=== PATIENT | female | born 1945 | race Caucasian/White ===

== ENCOUNTER 2017-05-31 17:21 | Inpatient (IN) | payer OTHER ==
--- NOTE | 2017-05-31 18:48 | PDOC ---
History of Present Illness - General History Source: Patient Exam Limitations: No Limitations - History of Present Illness Initial Comments: 05/31/17 19:20 The patient is a 72 year old female, with a significant past medical history of hypertension and diverticulitis, who presents to the emergency complaining of increased belching and weakness over the past week. The patient reports she presented to [facility] approximately one week ago with abdominal pain. At the time, the patient reports she had a CT done, which revealed diverticulitis. The patient was started on a laxative, which resulted in a bowel movement and resolved her pain. The patient was started on ciprofloxacin after discharge. The patient reports she has been experiencing increased weakness, a subjective fever, chills, and burning in her chest since she started her antibiotic treatment. She reports increased belching, but denies any current abdominal pain, abdominal distension, nausea, vomiting, diarrhea, or constipation. The patient reports she has had a bowel movement every day since she was discharged, which were yellow in color and soft. The patient denies any dysuria, hematuria, frequency, or urgency. She denies any chest pain , shortness of breath, or palpitations. She denies any recent travel or sick contacts. Allergies: Penicillins Past Surgical History: Appendectomy, Cholecystectomy Social History: Non smoker. No ETOH or recreational drug use. <Carey Wyman - Last Filed: 05/31/17 20:31> <Xochilt Pretty - Last Filed: 05/31/17 22:58> - General Chief Complaint: Weakness Stated Complaint: WEAKNESS Time Seen by Provider: 05/31/17 17:52 Past History <Carey Wyman - Last Filed: 05/31/17 20:31> - Past Medical History HTN: Yes - Surgical History Appendectomy: Yes Cholecystectomy: Yes - Psycho/Social/Smoking Cessation Hx Suicidal Ideation: No Smoking History: Never smoked Information on smoking cessation initiated: No Hx Alcohol Use: No Drug/Substance Use Hx: No Substance Use Type: None <Xochilt Pretty - Last Filed: 05/31/17 22:58> - Past Medical History Allergies/Adverse Reactions: Allergies Allergy/AdvReac Type Severity Reaction Status Date / Time Penicillins Allergy Verified 05/31/17 17:27 Home Medications: Ambulatory Orders Amlodipine Besylate [Norvasc -] 5 mg PO DAILY 05/31/17 Ciprofloxacin HCl [Cipro] 500 mg PO BID 05/31/17 Lisinopril 10 mg PO BID 05/31/17 Metronidazole [Flagyl -] 500 mg PO TID 05/31/17 Simvastatin 20 mg PO HS 05/31/17 Review of Systems - Review of Systems Able to Perform ROS?: Yes Comments:: 05/31/17 19:21 GENERAL/CONSTITUTIONAL: Yes: +fever, +chills, +weakness, +increased belching. HEAD, EYES, EARS, NOSE AND THROAT: No change in vision. No ear pain or discharge. No sore throat. CARDIOVASCULAR: No chest pain or shortness of breath. RESPIRATORY: No cough, wheezing, or hemoptysis. GASTROINTESTINAL: No nausea, vomiting, diarrhea or constipation. GENITOURINARY: No dysuria, frequency, or change in urination. MUSCULOSKELETAL: No joint or muscle swelling or pain. No neck or back pain. SKIN: No rash NEUROLOGIC: No headache, vertigo, loss of consciousness, or change in strength/ sensation. ENDOCRINE: No increased thirst. No abnormal weight change. HEMATOLOGIC/LYMPHATIC: No anemia, easy bleeding, or history of blood clots. ALLERGIC/IMMUNOLOGIC: No hives or skin allergy. <GaroGiomilsy - Last Filed: 05/31/17 20:31> *Physical Exam - Vital Signs Last Vital Signs Temp Pulse Resp BP Pulse Ox 97.7 F 86 18 154/71 98 05/31/17 17:23 05/31/17 17:23 05/31/17 17:23 05/31/17 17:23 05/31/17 17:23 - Physical Exam Comments: 05/31/17 19:22 GENERAL: Awake, alert, and fully oriented, in no acute distress HEAD: No signs of trauma EYES: PERRLA, EOMI, sclera anicteric, conjunctiva clear ENT: Auricles normal inspection, hearing grossly normal, nares patent, oropharynx clear without exudates. Moist mucosa NECK: Normal ROM, supple, no lymphadenopathy, JVD, or masses LUNGS: Breath sounds equal, clear to auscultation bilaterally. No wheezes, and no crackles HEART: Regular rate and rhythm, normal S1 and S2, no murmurs, rubs or gallops ABDOMEN: Hyperactive bowel sounds, Soft, nontender. No guarding, no rebound. No masses EXTREMITIES: Normal range of motion, no edema. No clubbing or cyanosis. No cords, erythema, or tenderness NEUROLOGICAL: Cranial nerves II through XII grossly intact. Normal speech, normal gait SKIN: Warm, Dry, normal turgor, no rashes or lesions noted. <Varsha Wymanrosi - Last Filed: 05/31/17 20:31> - Vital Signs Last Vital Signs Temp Pulse Resp BP Pulse Ox 97.7 F 86 18 154/71 98 05/31/17 17:23 05/31/17 17:23 05/31/17 17:23 05/31/17 17:23 05/31/17 17:23 <Xochilt Pretty - Last Filed: 05/31/17 22:58> ED Treatment Course - LABORATORY CBC & Chemistry Diagram: 05/31/17 19:00 05/31/17 19:00 - ADDITIONAL ORDERS Additional order review: 05/31/17 19:00 RBC 4.28 MCV 90.8 MCHC 34.0 RDW 13.1 MPV 7.8 Neutrophils % 65.5 Lymphocytes % 17.9 Monocytes % 15.5 H Eosinophils % 0.8 Basophils % 0.3 - RADIOLOGY Radiograph Interpretation: 05/31/17 20:32 EXAM: CT Abdomen and Pelvis INTERPRETED BY: Dr. Churchill REVIEWED BY: Dr. Pretty IMPRESSION: Sigmoid and descending colon diverticulosis is noted without CT evidence of acute diverticulitis. Correlate with the results of prior imaging studies if available from a different facility. A nonspecific 6 x 3.7 x 3.4 cm left adnexal cystic structure is seen as discussed above. [employer] consultation is suggested. Status post cholecystectomy. No definite urinary tract dilatation. Moderate hiatal hernia. Within the mid abdominal mesentery centrally in association with several slightly prominent mesenteric lymph nodes. This appearance on CT is most commonly of no clinical significance and much less commonly due to developing inflammation/panniculitis or neoplastic disease. Correlation with 3 month follow-up CT or MRI is essential to document stability and lack of developing pathology. Alternatively direct comparison with previous CT or MRI studies would be helpful if available from a different facility. - Medications Given in the ED: ED Medications Discontinued Medications Generic Name Dose Route Start Last Admin Trade Name Freq PRN Reason Stop Dose Admin Ondansetron HCl 4 mg 05/31/17 18:57 05/31/17 19:15 Zofran Injection IVPUSH 05/31/17 18:58 4 mg ONCE ONE Administration <Carey Wyman - Last Filed: 05/31/17 20:31> - LABORATORY CBC & Chemistry Diagram: 05/31/17 19:00 05/31/17 19:00 <Xochilt Pretty - Last Filed: 05/31/17 22:58> Medical Decision Making - Medical Decision Making Pt with nausea, poor appetite, belching. Found to have acute renal failure (no prior history of kidney problems). Will admit to hospitalist service. <Xochilt Pretty - Last Filed: 05/31/17 22:58> *DC/Admit/Observation/Transfer - Attestations Scribe Attestion: 05/31/17 19:22 Documentation prepared by Carey Wyman, acting as medical office technologist for Xochitl Pretty MD. <Carey Wyman - Last Filed: 05/31/17 20:31> - Discharge Dispostion Admit: Yes <Xochilt Pretty - Last Filed: 05/31/17 22:58> Diagnosis at time of Disposition: Acute renal failure Qualifiers: Acute renal failure type: unspecified Qualified Code(s): N17.9 - Acute kidney failure, unspecified - Discharge Dispostion Condition at time of disposition: Stable - Referrals
[2017-05-31] MEDS ORDERED: SODIUM CHLORIDE 1,000 ML IV STA (18:57)
[2017-05-31] MEDS ORDERED: ONDANSETRON 4 MG/2 ML VIAL IVPUSH ONE (18:57)
[2017-05-31 19:03] LABS: BASOPHIL 0.3 % (0-2.0); EOSINOPHIL 0.8 % (0-4.5); MCH 30.8 pg (25.7-33.7); MEAN CELL VOLUME 90.8 fl (80-96); MEAN PLT VOLUME 7.8 fl (7.5-11.1); NEUTROPHILS 65.5 % (42.8-82.8); PLATELET COUNT 292 K/MM3 (134-434); RDW 13.1 % (11.6-15.6); WHITE BLOOD COUNT 9.4 K/mm3 (4.0-10.0)
[2017-05-31] MEDS ORDERED: ONDANSETRON 4 MG/2 ML VIAL ONE (19:11)
[2017-05-31 19:30] LABS: ALBUMIN 3.6 g/dl (3.4-5.0); ANION GAP 8 (8-16); BILIRUBIN,TOTAL 0.5 mg/dL (0.2-1.0); CALCIUM 8.7 mg/dL (8.5-10.1); CO2 29 mmol/L (21-32); CREATININE 3.2 mg/dL (0.55-1.02); GLUCOSE,RANDOM 106 mg/dL (74-106); MAGNESIUM 2.4 mg/dL (1.8-2.4); SGOT/AST 18 U/L (15-37); SGPT/ALT 15 U/L (12-78)
[2017-05-31 19:31] LABS: ALK PHOS 57 U/L (45-117)
[2017-05-31] MEDS ORDERED: ZOLPIDEM TARTRATE 5 MG TABLET PO PRN (22:39)
--- NOTE | 2017-05-31 23:25 | PN ---
Teaching Attending Note Name of Resident: Sawyer Thompson ATTENDING PHYSICIAN STATEMENT I saw and evaluated the patient. I reviewed the resident's note and discussed the case with the resident. I agree with the resident's findings and plan as documented. SUBJECTIVE: Female c/o abdominal discomfort, denies any urinary problems, urgency , increased frequency or hematuria. OBJECTIVE: GEN:A&Ox3 in mild distress HEENT: NC, AT, PERRLA, EOMI, MMM CVS: RRR, S1, S2 LUNGS: CTA Abdomen: tender, no CVA tenderness, BS+ Ext: Nl rom, no peripheral edema CBCD WBC 9.4 K/mm3 (4.0-10.0) 05/31/17 19:00 RBC 4.28 M/mm3 (3.60-5.2) 05/31/17 19:00 Hgb 13.2 GM/dL (10.7-15.3) 05/31/17 19:00 Hct 38.9 % (32.4-45.2) 05/31/17 19:00 MCV 90.8 fl (80-96) 05/31/17 19:00 MCHC 34.0 g/dl (32.0-36.0) 05/31/17 19:00 RDW 13.1 % (11.6-15.6) 05/31/17 19:00 Plt Count 292 K/MM3 (134-434) 05/31/17 19:00 MPV 7.8 fl (7.5-11.1) 05/31/17 19:00 CMP Sodium 141 mmol/L (136-145) 05/31/17 19:00 Potassium 4.5 mmol/L (3.5-5.1) 05/31/17 19:00 Chloride 104 mmol/L (98-107) 05/31/17 19:00 Carbon Dioxide 29 mmol/L (21-32) 05/31/17 19:00 Anion Gap 8 (8-16) 05/31/17 19:00 BUN 28 mg/dL (7-18) H 05/31/17 19:00 Creatinine 3.2 mg/dL (0.55-1.02) H 05/31/17 19:00 Creat Clearance w eGFR 14.28 (>60) 05/31/17 19:00 Random Glucose 106 mg/dL (74-106) 05/31/17 19:00 Calcium 8.7 mg/dL (8.5-10.1) 05/31/17 19:00 Total Bilirubin 0.5 mg/dL (0.2-1.0) 05/31/17 19:00 AST 18 U/L (15-37) 05/31/17 19:00 ALT 15 U/L (12-78) 05/31/17 19:00 Alkaline Phosphatase 57 U/L (45-117) 05/31/17 19:00 Total Protein 7.0 g/dl (6.4-8.2) 05/31/17 19:00 Albumin 3.6 g/dl (3.4-5.0) 05/31/17 19:00 ASSESSMENT AND PLAN: THAD vs CKD Urine electrolytes, renal USG Avoid nephrotoxic drugs IVF NS Repeat BMP 4hours and in AM Diverticulosis Clear liquids and advance diet as tolerated. PPI DVT prophylaxis
--- NOTE | 2017-05-31 23:50 | HP ---
CHIEF COMPLAINT: belching and weakness PCP: Corinne Salvador HISTORY OF PRESENT ILLNESS: 72F w/ hx of diverticulitis, cholecystectomy, appendectomy, HTN, and HLD presenting w/ increased belching and weakness for past week. Pt reports that she presented to [facility] 8 days ago with abdominal pain and was diagnosed with acute diverticulitis on CT. She was given a laxative which helped her have a BM, and that resolved her abdominal pain. She was discharged on a 10 day course of flagyl and cipro, and told to eat a clear liquid diet for next five days. Pt reports that since beginning her abx, she has had decreased appetite, 2 episodes of non-bloody brown/yellow diarrhea per day, chills, weakness, and "increased gas on her right side" which causes her discomfort but not pain. She denies nausea, emesis, constipation, fevers, chest pain, SOB, dysuria, urgency, urinary frequency, sick contacts, and recent travel. ER course was notable for: (1) BMP showing BUN of 28 and creatinine of 3.2 (2) CT abdomen showing diverticulosis but no diverticulitis (3) Recent Travel: none PAST MEDICAL HISTORY: HTN HLD PAST SURGICAL HISTORY: cholecystectomy appendectomy Social History: Smoking: none Alcohol: none Drugs: none Family History: none Allergies Penicillins Allergy (Verified 05/31/17 17:27)- gets hives HOME MEDICATIONS: Home Medications Medication Instructions Recorded Amlodipine Besylate [Norvasc -] 5 mg PO DAILY 05/31/17 Ciprofloxacin HCl [Cipro] 500 mg PO BID 05/31/17 Lisinopril 10 mg PO BID 05/31/17 Metronidazole [Flagyl -] 500 mg PO TID 05/31/17 Simvastatin 20 mg PO HS 05/31/17 REVIEW OF SYSTEMS GENERAL: No fever, + chills, no night sweats, + weakness. HEAD, EYES, EARS, NOSE AND THROAT: No change in vision, ear pain, or sore throat CARDIOVASCULAR: No chest pain or palpitations RESPIRATORY: No cough, wheezing, or hemoptysis. GASTROINTESTINAL: No nausea, vomiting, + diarrhea, no constipation, or blood in the stool. GENITOURINARY: No dysuria, frequency, or urgency MUSCULOSKELETAL: No joint or muscle swelling or pain. SKIN: No rashes or pruritis ENDOCRINE: No increased thirst. No abnormal weight change NEUROLOGIC: No headache, dizziness, loss of consciousness, or change in strength /sensation. Vital Signs - 24 hr 05/31/17 05/31/17 05/31/17 17:23 20:24 23:33 Temperature 97.7 F 98.2 F Pulse Rate 86 Pulse Rate [ 83 83 Left Radial] Respiratory 18 17 15 Rate Blood Pressure 154/71 Blood Pressure 150/82 156/86 [Right Arm] O2 Sat by Pulse 98 96 94 L Oximetry (%) PHYSICAL EXAMINATION GENERAL: Awake, alert, and fully oriented, in no acute distress. HEAD: Normal with no signs of trauma. EYES: Pupils equal, round and reactive to light, extraocular movements intact, sclera anicteric, conjunctiva clear. No lid lag. EARS, NOSE, THROAT: Ears normal, nares patent, oropharynx clear without exudates. Moist mucous membranes. NECK: Normal range of motion, supple without lymphadenopathy, JVD, or masses. LUNGS: Breath sounds equal, clear to auscultation bilaterally. No wheezes, and no crackles. No accessory muscle use. HEART: Regular rate and rhythm, normal S1 and S2 without murmur, rub or gallop. ABDOMEN: Soft, minimally tender in RUQ, not distended, normoactive bowel sounds , no guarding, no rebound, no masses. No hepatomegaly or splenomegaly. MUSCULOSKELETAL: Normal range of motion at all joints. No bony deformities or tenderness. No CVA tenderness. UPPER EXTREMITIES: 2+ pulses, warm, well-perfused. No cyanosis. No clubbing. No peripheral edema. LOWER EXTREMITIES: 2+ pulses, warm, well-perfused. No calf tenderness. No peripheral edema. NEUROLOGICAL: Cranial nerves II-XII intact. Normal speech. Normal gait. PSYCHIATRIC: Cooperative. Good eye contact. Appropriate mood and affect. SKIN: Warm, dry, normal turgor, no rashes or lesions noted, normal capillary refill. CBC,CMP WBC 9.4 K/mm3 (4.0-10.0) 05/31/17 19:00 RBC 4.28 M/mm3 (3.60-5.2) 05/31/17 19:00 Hgb 13.2 GM/dL (10.7-15.3) 05/31/17 19:00 Hct 38.9 % (32.4-45.2) 05/31/17 19:00 MCV 90.8 fl (80-96) 05/31/17 19:00 MCH 30.8 pg (25.7-33.7) 05/31/17 19:00 MCHC 34.0 g/dl (32.0-36.0) 05/31/17 19:00 RDW 13.1 % (11.6-15.6) 05/31/17 19:00 Plt Count 292 K/MM3 (134-434) 05/31/17 19:00 MPV 7.8 fl (7.5-11.1) 05/31/17 19:00 Neutrophils % 65.5 % (42.8-82.8) 05/31/17 19:00 Lymphocytes % 17.9 % (8-40) 05/31/17 19:00 Monocytes % 15.5 % (3.8-10.2) H 05/31/17 19:00 Eosinophils % 0.8 % (0-4.5) 05/31/17 19:00 Basophils % 0.3 % (0-2.0) 05/31/17 19:00 Sodium 141 mmol/L (136-145) 05/31/17 19:00 Potassium 4.5 mmol/L (3.5-5.1) 05/31/17 19:00 Chloride 104 mmol/L (98-107) 05/31/17 19:00 Carbon Dioxide 29 mmol/L (21-32) 05/31/17 19:00 Anion Gap 8 (8-16) 05/31/17 19:00 BUN 28 mg/dL (7-18) H 05/31/17 19:00 Creatinine 3.2 mg/dL (0.55-1.02) H 05/31/17 19:00 Creat Clearance w eGFR 14.28 (>60) 05/31/17 19:00 Random Glucose 106 mg/dL (74-106) 05/31/17 19:00 Calcium 8.7 mg/dL (8.5-10.1) 05/31/17 19:00 Phosphorus 3.0 mg/dL (2.5-4.9) 05/31/17 19:00 Magnesium 2.4 mg/dL (1.8-2.4) 05/31/17 19:00 Total Bilirubin 0.5 mg/dL (0.2-1.0) 05/31/17 19:00 AST 18 U/L (15-37) 05/31/17 19:00 ALT 15 U/L (12-78) 05/31/17 19:00 Alkaline Phosphatase 57 U/L (45-117) 05/31/17 19:00 Total Protein 7.0 g/dl (6.4-8.2) 05/31/17 19:00 Albumin 3.6 g/dl (3.4-5.0) 05/31/17 19:00 CT Abdomen: sigmoid and descending colon diverticulosis without evidence of diverticulitis. 6 x 3.7 x 3.4 cm left adnexal cystic structure. Moderate hiatal hernia. Prominent mesenteric lymph nodes- f/u CT in 3 months. ASSESSMENT/PLAN: 72F w/ hx of diverticulitis, cholecystectomy, appendectomy, HTN, and HLD presenting w/ increased belching, anorexia, chills, and weakness for past week after starting course of flagyl and cipro for acute diverticulitis, admitted for THAD. #kidney injury -THAD vs. CKD (no baseline available). BUN of 28 and creatinine of 3.2 with ratio less than 10:1 suggesting intrinsic renal disease. Possibly 2/2 ATN vs. AIN 2/2 reaction to flagyl or cipro. Can also be pre-renal given pt's history of decreased po intake over past week. -NS at 100 ml/hr -f/u renal and bladder US -f/u UA -f/u urine creatinine, urine protein, urine sodium -trend BMP -avoid nephrotoxic drugs. home lisinopril 10mg BID held due to kidney injury. #diverticulosis on CT -pt reports no abdominal pain and she denies hx of constipation -no leukocytosis, no fever -clear liquid diet, advance as tolerated -protonix 40mg PO qd #belching/R sided gas -zofran 4mg q6h PRN #weakness -possibly 2/2 decreased po intake over past week and THAD -NS at 100 ml/hr #HTN -continue home amlodipine 5mg qd. If BP is not adequately controlled, can increase to higher dose. -hold lisinopril 10mg BID due to kidney injury -monitor vitals #HLD -continue home simvastatin 20mg qd #anorexia -likely 2/2 THAD -clear liquid diet, advance as tolerated -monitor appetite #L adnexal cystic structure on CT -f/u outpt #prominent mesenteric lymph nodes -f/u outpt CT scan in 3 months as per radiologist recommendation #FEN/ppx -NS at 100 ml/hr -electrolytes wnl -clear liquids -protonix 40mg PO qd -SCDs and heparin 5000 U SQ TID Sawyer Thompson MD PGY1 Problem List - Problem (1) Acute renal failure Code(s): N17.9 - ACUTE KIDNEY FAILURE, UNSPECIFIED Qualifiers: Acute renal failure type: unspecified Qualified Code(s): N17.9 - Acute kidney failure, unspecified (2) Hypertension Code(s): I10 - ESSENTIAL (PRIMARY) HYPERTENSION (3) Hyperlipemia Code(s): E78.5 - HYPERLIPIDEMIA, UNSPECIFIED (4) Diverticulitis Code(s): K57.92 - DVTRCLI OF INTEST, PART UNSP, W/O PERF OR ABSCESS W/O BLEED (5) Diverticulosis Code(s): K57.90 - DVRTCLOS OF INTEST, PART UNSP, W/O PERF OR ABSCESS W/O BLEED Visit type - Emergency Visit Emergency Visit: Yes ED Registration Date: 05/31/17 Care time: The patient presented to the Emergency Department on the above date and was hospitalized for further evaluation of their emergent condition. - New Patient This patient is new to me today: Yes Date on this admission: 06/01/17 - Critical Care Critical Care patient: No
[2017-05-31] MEDS ORDERED: ONDANSETRON 4 MG/2 ML VIAL IVPB PRN (23:53)
[2017-06-01] MEDS: HEPARIN NA (PORCINE) 5,000 UNITS/ML 1ML VIAL SQ SCH ×3 (01:03→18:09)
[2017-06-01 03:46] VITALS: BMI 26.5
[2017-06-01] MEDS: SODIUM CHLORIDE 1,000 ML IV SCH ×3 (08:52→23:18)
[2017-06-01 08:59] LABS: URINE APPEARANCE CLEAR; URINE BILIRUBIN NEGATIVE (NEGATIVE); URINE BLOOD NEGATIVE (NEGATIVE); URINE COLOR LT. YELLOW; URINE GLUCOSE (UA) NEGATIVE (NEGATIVE); URINE KETONE NEGATIVE (NEGATIVE); URINE LEUK ESTERASE NEGATIVE (NEGATIVE); URINE NITRITE NEGATIVE (NEGATIVE); URINE PROTEIN NEGATIVE (NEGATIVE); URINE UROBILINOGEN 0.2 mg/dL (0.2-1.0)
[2017-06-01 09:16] LABS: ANION GAP 9 (8-16); CALCIUM 7.9 mg/dL (8.5-10.1); CO2 26 mmol/L (21-32); GLUCOSE,RANDOM 94 mg/dL (74-106)
[2017-06-01 09:21] LABS: URINE CREATININE 30.5 mg/dL (20-320)
[2017-06-01] MEDS: amLODIPine BESYLATE 5 MG TABLET (FP) PO SCH (09:33)
[2017-06-01] MEDS: PANTOPRAZOLE 40 MG TABLET (FP) PO SCH (09:33)
--- NOTE | 2017-06-01 09:33 | PN ---
Physical Exam: SUBJECTIVE: Patient seen and examined Patient is comfortable with no acute distress. No fever or chills no shortness of breath. OBJECTIVE: Vital Signs Temperature 99.2 F 06/01/17 07:47 Pulse Rate 72 06/01/17 07:47 Respiratory Rate 20 06/01/17 07:47 Blood Pressure 126/76 06/01/17 07:47 O2 Sat by Pulse Oximetry (%) 94 L 06/01/17 03:24 GENERAL: The patient is awake, alert, and fully oriented, in no acute distress. HEAD: Normal with no signs of trauma. EYES: PERRL, extraocular movements intact, sclera anicteric, conjunctiva clear. ENT: Ears normal, oropharynx clear without exudates, moist mucous membranes. NECK: Trachea midline, full range of motion, supple. LUNGS: Breath sounds equal, clear to auscultation bilaterally, no wheezes, no crackles, no accessory muscle use. HEART: Regular rate and rhythm, S1, S2 without murmur, rub or gallop. ABDOMEN: Soft, nontender, nondistended, normoactive bowel sounds, no hepatosplenomegaly, no masses. EXTREMITIES: 2+ pulses, warm, well-perfused, no edema. NEUROLOGICAL: Cranial nerves II through XII grossly intact. Normal speech, gait not observed. PSYCH: Normal mood, normal affect. SKIN: Warm, dry, normal turgor, no rashes or lesions noted CBCD WBC 9.4 K/mm3 (4.0-10.0) 05/31/17 19:00 RBC 4.28 M/mm3 (3.60-5.2) 05/31/17 19:00 Hgb 13.2 GM/dL (10.7-15.3) 05/31/17 19:00 Hct 38.9 % (32.4-45.2) 05/31/17 19:00 MCV 90.8 fl (80-96) 05/31/17 19:00 MCHC 34.0 g/dl (32.0-36.0) 05/31/17 19:00 RDW 13.1 % (11.6-15.6) 05/31/17 19:00 Plt Count 292 K/MM3 (134-434) 05/31/17 19:00 MPV 7.8 fl (7.5-11.1) 05/31/17 19:00 CMP Sodium 145 mmol/L (136-145) 06/01/17 07:00 Potassium 4.6 mmol/L (3.5-5.1) 06/01/17 07:00 Chloride 110 mmol/L (98-107) H 06/01/17 07:00 Carbon Dioxide 26 mmol/L (21-32) 06/01/17 07:00 Anion Gap 9 (8-16) 06/01/17 07:00 BUN 23 mg/dL (7-18) H 06/01/17 07:00 Creatinine 3.0 mg/dL (0.55-1.02) H 06/01/17 07:00 Creat Clearance w eGFR 14.28 (>60) 05/31/17 19:00 Random Glucose 94 mg/dL (74-106) 06/01/17 07:00 Calcium 7.9 mg/dL (8.5-10.1) L 06/01/17 07:00 Total Bilirubin 0.5 mg/dL (0.2-1.0) 05/31/17 19:00 AST 18 U/L (15-37) 05/31/17 19:00 ALT 15 U/L (12-78) 05/31/17 19:00 Alkaline Phosphatase 57 U/L (45-117) 05/31/17 19:00 Total Protein 7.0 g/dl (6.4-8.2) 05/31/17 19:00 Albumin 3.6 g/dl (3.4-5.0) 05/31/17 19:00 Active Medications Generic Name Dose Route Start Last Admin Trade Name Arnoldoq PRN Reason Stop Dose Admin Amlodipine Besylate 5 mg 06/01/17 10:00 Norvasc - PO DAILY BRANDI Heparin Sodium (Porcine) 5,000 unit 06/01/17 02:00 06/01/17 01:03 Heparin - SQ 5,000 unit Q8H-IV BRANDI Administration Sodium Chloride 1,000 mls @ 100 mls/hr 05/31/17 22:45 06/01/17 08:52 Normal Saline - IV Not Given ASDIR BRANDI Ondansetron HCl 4 mg 05/31/17 23:53 Zofran Injection IVPB Q6H PRN NAUSEA Pantoprazole Sodium 40 mg 06/01/17 10:00 Protonix - PO DAILY BRANDI Zolpidem Tartrate 5 mg 05/31/17 22:39 06/01/17 01:06 Ambien - PO 06/01/17 22:38 5 mg HS PRN Administration INSOMNIA Home Medications Medication Instructions Recorded Amlodipine Besylate [Norvasc -] 5 mg PO DAILY 05/31/17 Ciprofloxacin HCl [Cipro] 500 mg PO BID 05/31/17 Lisinopril 10 mg PO BID 05/31/17 Metronidazole [Flagyl -] 500 mg PO TID 05/31/17 Simvastatin 20 mg PO HS 05/31/17 CT Abdomen: sigmoid and descending colon diverticulosis without evidence of diverticulitis. 6 x 3.7 x 3.4 cm left adnexal cystic structure. Moderate hiatal hernia. Prominent mesenteric lymph nodes- f/u CT in 3 months. ASSESSMENT/PLAN: 72F w/ hx of diverticulitis, cholecystectomy, appendectomy, HTN, and HLD presenting w/ increased belching, anorexia, chills, and weakness for past week after starting course of flagyl and cipro for acute diverticulitis, admitted for THAD. #Acute kidney injury will stop lisinopril and cipro for now, will start IVF, nephrology consult to see the patient #diverticulosis on CT, no abdominal pain and she denies hx of constipation, no fever or chills was on Cipro/flagyl -protonix 40mg PO qd #HTN will hold lisinopril for now, continue home amlodipine 5mg qd. #HLD continue home simvastatin 20mg qd #anorexia continue diet #L adnexal cystic structure on CT f/u as an outpt #prominent mesenteric lymph nodes f/u outpt CT scan in 3 months as per radiologist recommendation DVT px: SCDs and heparin 5000 U SQ TID GI px; Protonix Visit type - Emergency Visit Emergency Visit: Yes ED Registration Date: 05/31/17 Care time: The patient presented to the Emergency Department on the above date and was hospitalized for further evaluation of their emergent condition. - New Patient This patient is new to me today: Yes Date on this admission: 06/01/17 - Critical Care Critical Care patient: No
--- NOTE | 2017-06-01 11:38 | EKG ---
Test Reason : Blood Pressure : / mmHG Vent. Rate : 078 BPM Atrial Rate : 078 BPM P-R Int : 154 ms QRS Dur : 140 ms QT Int : 444 ms P-R-T Axes : 047 -18 078 degrees QTc Int : 506 ms NORMAL SINUS RHYTHM LEFT BUNDLE BRANCH BLOCK ABNORMAL ECG NO PREVIOUS ECGS AVAILABLE BASE LINE ARTIFACTS REPEAT EKG IF CLINICALLY INDICATED Confirmed by CELINA BRITTON MD ([id number] on 06/01/2017 11:38:38 AM Referred By: Confirmed By:CELINA BRITTON MD
[2017-06-01] MEDS ORDERED: ZOLPIDEM TARTRATE 5 MG TABLET PO PRN ×2 (15:35→22:36)
--- NOTE | 2017-06-01 22:40 | CON.NEP ---
Consult Consult Specialty:: nephrology Referred by:: gary Reason for Consultation:: renal failure - History of Present Illness Chief Complaint: kidney failure History of Present Illness: s/p illness dx's as diverticulitis 10 days ago at [facility] er she had ct scan confirming the dx unclear if she was given iv contrast she c/o malaise, no appetite and sh has not taken all the antibiotics she was given on release from the er - History Source History Provided By: Patient, Medical Record Limitations to Obtaining History: No Limitations - Past Medical History Cardio/Vascular: Yes: HTN - Alcohol/Substance Use Hx Alcohol Use: No - Smoking History Smoking history: Never smoked Home Medications - Allergies Allergies/Adverse Reactions: Allergies Allergy/AdvReac Type Severity Reaction Status Date / Time Penicillins Allergy Verified 05/31/17 17:27 - Home Medications Home Medications: Ambulatory Orders Amlodipine Besylate [Norvasc -] 5 mg PO DAILY 05/31/17 Ciprofloxacin HCl [Cipro] 500 mg PO BID 05/31/17 Lisinopril 10 mg PO BID 05/31/17 Metronidazole [Flagyl -] 500 mg PO TID 05/31/17 Simvastatin 20 mg PO HS 05/31/17 Zolpidem Tartrate [Ambien] 10 mg PO HS 06/01/17 Nephrology Consult - Height Height: 5 ft - Weight Weight: 136 lb - BMI Body Mass Index (BMI): 26.5 - Lab Results CBC,BMP: CBC, BMP 06/01/17 07:00 Anion Gap: Anion Gap Anion Gap 9 (8-16) 06/01/17 07:00 - Physical Examination Vital Signs: Vital Signs Temperature 99.0 F 06/01/17 15:30 Pulse Rate 74 06/01/17 15:30 Respiratory Rate 18 06/01/17 15:30 Blood Pressure 137/72 06/01/17 11:00 O2 Sat by Pulse Oximetry (%) 98 06/01/17 09:00 Constitutional: Yes: Well Nourished Eyes: Yes: WNL HENT: Yes: WNL, Other (oral mucosa dry) Neck: Yes: WNL Respiratory: Yes: WNL, Regular, CTA Bilaterally Gastrointestinal: Yes: Normal Bowel Sounds, Soft, Tenderness Renal/: Yes: WNL. No: Anuria, Bladder Distention, CVA Tenderness - Left, CVA Tenderness - Right, Herrera Present, Hematuria, Incontinence Musculoskeletal: Yes: WNL Extremities: Yes: WNL Edema: No Peripheral Pulses WNL: Yes Integumentary: Yes: WNL Neurological: Yes: WNL, Alert, Oriented Psychiatric: Yes: WNL, Alert, Oriented Assessment/Plan THAD- they told her nothin of kidney failure when she was at [facility] Probably prerenal from lack of intake and concomitant use of acei prior to presentation she is clinically dry on exam she denies decreased urine output Plan- continue IVF ambien 10 mg instead of 5 measure I and O
[2017-06-01] MEDS: ZOLPIDEM TARTRATE 5 MG TABLET PO PRN (23:34)
[2017-06-02] MEDS: HEPARIN NA (PORCINE) 5,000 UNITS/ML 1ML VIAL SQ SCH ×3 (01:52→22:21)
[2017-06-02 08:44] LABS: ALK PHOS 94 U/L (45-117); ANION GAP 8 (8-16); BILIRUBIN,TOTAL 1.7 mg/dL (0.2-1.0); CALCIUM 8.6 mg/dL (8.5-10.1); CO2 24 mmol/L (21-32); CREATININE 0.6 mg/dL (0.55-1.02); GLUCOSE,RANDOM 86 mg/dL (74-106); SGOT/AST 24 U/L (15-37); SGPT/ALT 48 U/L (12-78); TOT PROT 6.4 g/dl (6.4-8.2)
[2017-06-02 09:26] LABS: URINE APPEARANCE CLEAR; URINE BILIRUBIN NEGATIVE (NEGATIVE); URINE BLOOD NEGATIVE (NEGATIVE); URINE COLOR LTYELLOW; URINE GLUCOSE (UA) NEGATIVE (NEGATIVE); URINE KETONE NEGATIVE (NEGATIVE); URINE NITRITE NEGATIVE (NEGATIVE); URINE PROTEIN NEGATIVE (NEGATIVE); URINE UROBILINOGEN NEGATIVE mg/dL (0.2-1.0)
[2017-06-02 09:30] LABS: URINE LEUK ESTERASE 1+ (NEGATIVE)
[2017-06-02 09:32] LABS: URINE RBC 1 /hpf (0-3)
[2017-06-02 09:33] LABS: URINE BACTERIA FEW /hpf (NONE SEEN); URINE MUCUS RARE; URINE WBC 8 /hpf (3-5)
[2017-06-02] MEDS: PANTOPRAZOLE 40 MG TABLET (FP) PO SCH (09:44)
[2017-06-02] MEDS: amLODIPine BESYLATE 5 MG TABLET (FP) PO SCH (09:44)
[2017-06-02] MEDS ORDERED: amLODIPine BESYLATE 10 MG TABLET (FP) PO SCH (10:23)
--- NOTE | 2017-06-02 10:55 | PN ---
Progress Note (short form) - Note Progress Note: Patient is having Diarrhea now, watery 10 times so far, no fever or chills. Vital Signs Temperature 99.7 F H 06/02/17 07:31 Pulse Rate 76 06/02/17 07:31 Respiratory Rate 20 06/02/17 07:31 Blood Pressure 142/76 06/02/17 07:31 O2 Sat by Pulse Oximetry (%) 98 06/01/17 21:00 GENERAL: The patient is awake, alert, and fully oriented, in no acute distress. HEAD: Normal with no signs of trauma. EYES: PERRL, extraocular movements intact, sclera anicteric, conjunctiva clear. ENT: Ears normal, oropharynx clear without exudates, moist mucous membranes. NECK: Trachea midline, full range of motion, supple. LUNGS: Breath sounds equal, clear to auscultation bilaterally, no wheezes, no crackles, no accessory muscle use. HEART: Regular rate and rhythm, S1, S2 without murmur, rub or gallop. ABDOMEN: Soft, nontender, nondistended, normoactive bowel sounds, no hepatosplenomegaly, no masses. EXTREMITIES: 2+ pulses, warm, well-perfused, no edema. NEUROLOGICAL: Cranial nerves II through XII grossly intact. Normal speech, gait not observed. PSYCH: Normal mood, normal affect. SKIN: Warm, dry, normal turgor, no rashes or lesions noted CBCD WBC 9.4 K/mm3 (4.0-10.0) 05/31/17 19:00 RBC 4.28 M/mm3 (3.60-5.2) 05/31/17 19:00 Hgb 13.2 GM/dL (10.7-15.3) 05/31/17 19:00 Hct 38.9 % (32.4-45.2) 05/31/17 19:00 MCV 90.8 fl (80-96) 05/31/17 19:00 MCHC 34.0 g/dl (32.0-36.0) 05/31/17 19:00 RDW 13.1 % (11.6-15.6) 05/31/17 19:00 Plt Count 292 K/MM3 (134-434) 05/31/17 19:00 MPV 7.8 fl (7.5-11.1) 05/31/17 19:00 CMP Sodium 140 mmol/L (136-145) 06/02/17 07:00 Potassium 3.8 mmol/L (3.5-5.1) 06/02/17 07:00 Chloride 108 mmol/L (98-107) H 06/02/17 07:00 Carbon Dioxide 24 mmol/L (21-32) 06/02/17 07:00 Anion Gap 8 (8-16) 06/02/17 07:00 BUN 12 mg/dL (7-18) D 06/02/17 07:00 Creatinine 0.6 mg/dL (0.55-1.02) D 06/02/17 07:00 Creat Clearance w eGFR > 60 (>60) 06/02/17 07:00 Random Glucose 86 mg/dL (74-106) 06/02/17 07:00 Calcium 8.6 mg/dL (8.5-10.1) 06/02/17 07:00 Total Bilirubin 1.7 mg/dL (0.2-1.0) H D 06/02/17 07:00 AST 24 U/L (15-37) D 06/02/17 07:00 ALT 48 U/L (12-78) D 06/02/17 07:00 Alkaline Phosphatase 94 U/L (45-117) D 06/02/17 07:00 Total Protein 6.4 g/dl (6.4-8.2) 06/02/17 07:00 Albumin 3.0 g/dl (3.4-5.0) L 06/02/17 07:00 Current Medications Generic Name Dose Route Start Last Admin Trade Name Arnoldoq PRN Reason Stop Dose Admin Amlodipine Besylate 10 mg 06/02/17 10:23 Norvasc - PO increased the dose DAILY BRANDI Heparin Sodium (Porcine) 5,000 unit 06/01/17 02:00 06/02/17 09:44 Heparin - SQ 5,000 unit Q8H-IV BRANDI Administration Sodium Chloride 1,000 mls @ 100 mls/hr 05/31/17 22:45 06/01/17 23:18 Normal Saline - IV 100 mls/hr ASDIR BRANDI Administration Ondansetron HCl 4 mg 05/31/17 23:53 Zofran Injection IVPB Q6H PRN stopped NAUSEA Pantoprazole Sodium 40 mg 06/01/17 10:00 06/02/17 09:44 Protonix - PO 40 mg stopped DAILY BRANDI Administration Zolpidem Tartrate 5 mg 06/01/17 23:22 06/01/17 23:34 Ambien - PO 5 mg HS PRN Administration INSOMNIA CT Abdomen: sigmoid and descending colon diverticulosis without evidence of diverticulitis. 6 x 3.7 x 3.4 cm left adnexal cystic structure. Moderate hiatal hernia. Prominent mesenteric lymph nodes- f/u CT in 3 months. ASSESSMENT/PLAN: 72F w/ hx of diverticulitis, cholecystectomy, appendectomy, HTN, and HLD presenting w/ increased belching, anorexia, chills, and weakness for past week after starting course of flagyl and cipro for acute diverticulitis, admitted for THAD. #Acute kidney injury back to normal creatinine now, s/p discontinuing lisinopril and cipro, On IVF, nephrology consult , covering doctor consult appreciated #diverticulosis on CT, no abdominal pain and she denies hx of constipation, no fever or chills . wNo further antibiotic needed and will hold protonox since the patient is on high risk for Cdiff, and will discontinue protonix as well since can cause Cdiff. #HTN lisinopril is discontinued due to ARF , Increased the dose of amlodipine 5mg-10mg qd. #HLD continue home simvastatin 20mg qd #anorexia continue with [place] diet #L adnexal cystic structure on CT f/u as an outpt #prominent mesenteric lymph nodes f/u outpt CT scan in 3 months as per radiologist recommendation DVT px: SCDs and heparin 5000 U SQ bid GI px; will discontinue due to having diarrhea( high risk for cdiff) Visit type - Emergency Visit Emergency Visit: Yes ED Registration Date: 05/31/17 Care time: The patient presented to the Emergency Department on the above date and was hospitalized for further evaluation of their emergent condition. - New Patient This patient is new to me today: No - Critical Care Critical Care patient: No
--- NOTE | 2017-06-02 20:09 | PN ---
Progress Note (short form) - Note Progress Note: Current Medications Amlodipine Besylate (Norvasc -) 10 mg PO DAILY [facility] Heparin Sodium (Porcine) (Heparin -) 5,000 unit SQ BID [facility] Sodium Chloride (Normal Saline -) 1,000 mls @ 100 mls/hr IV ASDIR BRANDI Last Admin: 06/01/17 23:18 Dose: 100 mls/hr Zolpidem Tartrate (Ambien -) 5 mg PO HS PRN PRN Reason: INSOMNIA Last Admin: 06/01/17 23:34 Dose: 5 mg Last Vital Signs Temp Pulse Resp BP Pulse Ox 98.8 F 73 18 138/70 98 06/02/17 15:40 06/02/17 15:40 06/02/17 15:40 06/02/17 15:40 06/02/17 09:00 lungs clear heart RRR Abd soft Ext no edema CBC, BMP 05/31/17 19:00 06/02/17 07:00 IMP- THAD resolved Plan- will sign off today
[2017-06-02] MEDS: ZOLPIDEM TARTRATE 5 MG TABLET PO PRN (23:54)
[2017-06-03 06:56] VITALS: PULSE 66
[2017-06-03] MEDS: HEPARIN NA (PORCINE) 5,000 UNITS/ML 1ML VIAL SQ SCH (10:00)
[2017-06-03] MEDS: SODIUM CHLORIDE 1,000 ML IV SCH (10:07)
--- NOTE | 2017-06-03 12:54 | DS ---
Physical Exam: SUBJECTIVE: Patient seen and examined Patient feels better with no acute distress, no further diarrhea, no abdominal pain. no chills. Daughter and her sons at bedside. OBJECTIVE: Vital Signs Temperature 98.9 F 06/03/17 06:00 Pulse Rate 66 06/03/17 06:00 Respiratory Rate 18 06/03/17 06:00 Blood Pressure 135/84 06/03/17 06:00 O2 Sat by Pulse Oximetry (%) 98 06/02/17 21:00 PHYSICAL EXAM GENERAL: The patient is awake, alert, and fully oriented, in no acute distress. HEAD: Normal with no signs of trauma. EYES: PERRL, extraocular movements intact, sclera anicteric, conjunctiva clear. ENT: Ears normal, nares patent, oropharynx clear without exudates, moist mucous membranes. NECK: Trachea midline, full range of motion, supple. LUNGS: Breath sounds equal, clear to auscultation bilaterally, no wheezes, no crackles, no accessory muscle use. HEART: Regular rate and rhythm, S1, S2 without murmur, rub or gallop. ABDOMEN: Soft, nontender, nondistended, normoactive bowel sounds, no guarding, no rebound, no hepatosplenomegaly, no masses. EXTREMITIES: 2+ pulses, warm, well-perfused, no edema. NEUROLOGICAL: Cranial nerves II through XII grossly intact. Normal speech, gait not observed. PSYCH: Normal mood, normal affect. SKIN: Warm, dry, normal turgor, no rashes or lesions noted. LABS HOSPITAL COURSE: Date of Admission:05/31/17 Date of Discharge: 06/03/17 Current Medications Generic Name Dose Route Start Last Admin Trade Name Arnoldoq PRN Reason Stop Dose Admin Amlodipine Besylate 10 mg 06/02/17 10:23 06/03/17 10:00 Norvasc - PO 10 mg DAILY BRANDI Administration Heparin Sodium (Porcine) 5,000 unit 06/02/17 22:00 06/03/17 10:00 Heparin - SQ 5,000 unit BID BRANDI Administration Sodium Chloride 1,000 mls @ 100 mls/hr 05/31/17 22:45 06/03/17 10:07 Normal Saline - IV Not Given ASDIR BRANDI Zolpidem Tartrate 5 mg 06/01/17 23:22 06/02/17 23:54 Ambien - PO 5 mg HS PRN Administration INSOMNIA Home Medications Medication Instructions Recorded Amlodipine Besylate [Norvasc -] 5 mg PO DAILY 05/31/17 Lisinopril 10 mg PO BID 05/31/17 Simvastatin 20 mg PO HS 05/31/17 Zolpidem Tartrate [Ambien] 10 mg PO HS 06/01/17 ASSESSMENT/PLAN: 72F w/ hx of diverticulitis, cholecystectomy, appendectomy, HTN, and HLD presenting w/ increased belching, anorexia, chills, and weakness for past week after starting course of flagyl and cipro for acute diverticulitis, admitted for THAD. #Acute kidney injury back to normal creatinine now,will reduce the dose of lisinopril to 5mg and discontinued cipro, s/p IVF, nephrology seen the patient covering drNick for . #Diverticulosis on CT, no abdominal pain and she denies hx of constipation, no fever or chills . no further antibiotic needed and will hold protonix since the patient is on high risk for Cdiff, and will discontinue protonix as well since can cause Cdiff. #HTN lisinopril is deacreased the dose and increased the dose of her norvasc . amlodipine 5mg-10mg qd. #HLD continue home simvastatin 20mg qd #anorexia continue with [place] diet #L adnexal cystic structure on CT f/u as an outpt #prominent mesenteric lymph nodes f/u outpt CT scan in 3 months as per radiologist recommendation DVT px: SCDs and heparin 5000 U SQ bid GI px; will discontinue due to having diarrhea( high risk for cdiff) CT Abdomen: sigmoid and descending colon diverticulosis without evidence of diverticulitis. 6 x 3.7 x 3.4 cm left adnexal cystic structure. Moderate hiatal hernia. Prominent mesenteric lymph nodes- f/u CT in 3 months. discharge time 45 minutes Minutes to complete discharge: 45 Discharge Summary Reason For Visit: ACUTE RENAL FAILURE Current Active Problems Acute renal failure (Acute) Diverticulitis (Acute) Diverticulosis (Acute) Hyperlipemia (Acute) Hypertension (Acute) Condition: Stable - Instructions Diet, Activity, Other Instructions: CT Abdomen: sigmoid and descending colon diverticulosis without evidence of diverticulitis. 6 x 3.7 x 3.4 cm left adnexal cystic structure. Moderate hiatal hernia. Prominent mesenteric lymph nodes- f/u CT in 3 months. Low fat diet, follow with you primary care doctor and application security consultant within a week. Increased your Amlodipine to 10mg po daily and decreased your lisinopril to 10mg po daily. stay away from the nuts, wheat and gluten food. Referrals: Corinne Johnson [Primary Care Provider] - Disposition: HOME - Home Medications Comprehensive Discharge Medication List: Ambulatory Orders Amlodipine Besylate [Norvasc -] 5 mg PO DAILY 05/31/17 Ciprofloxacin HCl [Cipro] 500 mg PO BID 05/31/17 Lisinopril 10 mg PO BID 05/31/17 Metronidazole [Flagyl -] 500 mg PO TID 05/31/17 Simvastatin 20 mg PO HS 05/31/17 Zolpidem Tartrate [Ambien] 10 mg PO HS 06/01/17 This patient is new to me today: No Emergency Visit: Yes ED Registration Date: 05/31/17 Care time: The patient presented to the Emergency Department on the above date and was hospitalized for further evaluation of their emergent condition. Critical Care patient: No - Discharge Referral Referred to [facility] Yes Physician Referral: Laura Ireland MD ([facility])
[2017-06-03 13:07] VITALS: BP 155/77; TEMP 98.2
== END 2017-06-03 13:43 | disposition home or self-care (01) | DRG 684 ==
LOC: JER 17:21 → JERBED 21:05 → J8W 06-01 00:44
PROVIDERS: ADMIT Internal Medicine; ATTEND Internal Medicine
DX: N17.9 Acute kidney failure, unspecified (principal); I10 Essential (primary) hypertension; K57.90 Diverticulosis of intestine, part unspecified, without perforation or abscess without bleeding; E78.5 Hyperlipidemia, unspecified; R14.2 Eructation; R63.0 Anorexia; Z68.26 Body mass index [BMI] 26.0-26.9, adult; N85.8 Other specified noninflammatory disorders of uterus; K44.9 Diaphragmatic hernia without obstruction or gangrene
CPT/HCPCS: 36415; 74176-TC; 76775-TC; 80048; 80053; 81003; 81015; 82570; 83735; 84100; 84156; 85025; 87086; 93005; 93010; 99283-25; J1644

== ENCOUNTER 2020-06-16 16:45 | Emergency (ER) | payer MEDICARE, OTHER ==
[2020-06-16 16:59] VITALS: PULSE 82; TEMP 97.8; BMI 32.4
--- NOTE | 2020-06-16 17:17 | PDOC ---
History of Present Illness - General Chief Complaint: Toothache Stated Complaint: TOOTH ACHE/RADIATING TO TOP OF HEAD Time Seen by Provider: 06/16/20 16:51 History Source: Patient Exam Limitations: No Limitations - History of Present Illness Initial Comments: 06/16/20 17:11 Patient is a 75-year-old female who presents to the ED with complaint of left cheek and dental pain that she has had for several months. She was seen by the dentist and was told that this pain is likely nervelike pain. She states it is her upper and lower gingiva on the left side. She denies any ear pain, throat pain, headaches. She took Tylenol which did not help her. She denies any fevers or chills. She was not placed on any antibiotics by the dentist. Past History - Medical History Allergies/Adverse Reactions: Allergies Allergy/AdvReac Type Severity Reaction Status Date / Time Penicillins Allergy Verified 05/31/17 17:27 Home Medications: Ambulatory Orders Simvastatin 20 mg PO HS 05/31/17 Zolpidem Tartrate [Ambien] 10 mg PO HS 06/01/17 Amlodipine Besylate [Norvasc -] 10 mg PO DAILY #30 tablet 06/03/17 Lisinopril 10 mg PO DAILY #30 tab 06/03/17 HTN: Yes - Surgical History Appendectomy: Yes Cholecystectomy: Yes - Reproductive History Is Patient Now?: No - Psycho-Social/Smoking History Smoking History: Never smoked Have you smoked in the past 12 months: No Information on smoking cessation initiated: No - Substance Abuse Hx (Audit-C & DAST Scrn) How often the patient has a drink containing alcohol: Never Score: In Men: 4 or > Positive; In Women: 3 or > Positive: 0 Screen Result (Pos requires Nsg. Audit-10AR): Negative In the last yr the pt used illegal drug/Rx for NonMed reason: No Score: Yes response is considered Positive: 0 Screen Result (Positive result requires Nsg. DAST-10): Negative Review of Systems - Review of Systems Comments:: 06/16/20 17:13 - Review of Systems Able to Perform ROS?: Yes Constitutional: No: Fever, Chills, Loss of Appetite, Night Sweats, Weakness HEENTM: No: Eye Pain, Vision changes, Ear Pain, Throat Pain, Throat Swelling, Mouth Pain, Difficulty Swallowing; positive: Dental pain left upper and lower. Respiratory: No: Cough, Shortness of Breath, Wheezing, Sputum Production Cardiac (ROS): No: Chest Pain, Chest Tightness, Palpitations, Irregular Heart Beat, Edema ABD/GI: No: Nausea, Vomiting, Abdominal Pain, Diarrhea : No Dysuria, No Hematuria, No Frequency, No Urgency, No Vaginal Discharge/Pain, No Penile Discharge/Pain Musculoskeletal: No: Muscle Pain, Back Pain, Joint Pain, Muscle Weakness, Neck Pain Integumentary: No: Lesions, Rash Neurological: No: Headache, Numbness, Tingling, Weakness, Speech Difficulties *Physical Exam - Vital Signs Last Vital Signs Temp Pulse Resp BP Pulse Ox 97.8 F 82 16 173/80 H 97 06/16/20 16:46 06/16/20 16:46 06/16/20 16:46 06/16/20 16:46 06/16/20 16:46 - Physical Exam 06/16/20 17:15 - Physical Exam General Appearance: Nourished, Appropriately Dressed, No Distress HEENT: EOMI, Normal Voice, No Pharyngeal Erythema, No Muffled/Hoarse voice, No Tonsillar Exudate, No Tonsillar Erythema, No Nasal Congestion, No Rhinorrhea, Hearing Grossly Normal, TMs Normal, No TM Bulging, No TM Dullness, No TM Erythema; gingival tenderness to the left upper and lower gingiva. No evidence of abscess or infection appreciated. No tenderness to the left cheek. No tenderness with pulling the pinna or pressing the tragus. No drainage from the left ear. No significant lymphadenopathy appreciated. Neck: Supple, No Lymphadenopathy (R), No Lymphadenopathy (L), No Rigidity, No Decreased range of motion Respiratory/Chest: Lungs Clear, Normal Breath Sounds. No Respiratory Distress, No Accessory Muscle Use Cardiovascular: Regular Rhythm, Regular Rate, S1, S2 Gastrointestinal/Abdominal: Normal Bowel Sounds, Soft. Non-tender, No Guarding, No Rebound, No Rigidity Musculoskeletal: Normal Inspection. No Decreased Range of Motion Extremity: Normal Capillary Refill, Normal Inspection Integumentary: Normal Color, Dry. No Rash Neurologic: charge account authorizer II-XII NML intact, Fully Oriented, Alert, Normal Mood/Affect, Normal Response Medical Decision Making - Medical Decision Making 06/16/20 17:16 Assessment: Patient is a 75-year-old female with left upper and lower gingival pain for several months. Plan: -The patient has been seen by dentist already who did not believe that this was an infection. On my exam today does not appear that the patient has any dental infections that require antibiotics. This does seem like nerve pain but will defer to dental for further evaluation and treatment. The patient has been explained this in [place]ian as well. She understands and agrees to treatment plan and she is stable for discharge. 06/16/20 17:27 The patient forgot to mention that she was seen by Dr. Kohli yesterday as she was referred to him for this nervelike pain. After reassessing the patient does admit that she had this pain for many years. Dr. Kohli did not take her insurance so she would like to be referred to another neurologist. The patient understands and agrees with this treatment and plan. Discharge - Discharge Information Problems reviewed: Yes Clinical Impression/Diagnosis: Pain of gingiva Condition: Stable Disposition: HOME - Follow up/Referral Referrals: Corinne Johnson [Primary Care Provider] - Ishaan Ojeda MD [Staff Physician] - Yury Perez MD [Staff Physician] - - Patient Discharge Instructions Patient Printed Discharge Instructions: DI for Dental Pain Additional Instructions: There are no particular medications that are indicated for nervelike pain in the gingiva. This should be treated by dentist and you should be followed up again by a dentist. Avoid very hot or very cold foods as this can irritate the gingiva even more. Be sure to follow-up with your primary doctor for further evaluation and treatment. We have also referred you to neurology for further evaluation and treatment. No existen medicamentos en particular que estn indicados para el dolor nervioso en la enca. Lacoste debe ser tratado por un dentista y debe ser controlado nuevamente por un dentista. Evite los alimentos muy calientes o muy fros, ya que pueden irritar an ms la enca. Asegrese de hacer un seguimiento con woodson mdico de cabecera para alba evaluacin y tratamiento adicionales. Tambin lo hemos derivado a neurologa para alba evaluacin y tratamiento adicionales. Print Language: GERMAN - Post Discharge Activity
[2020-06-16] MEDS ORDERED: ACETAMINOPHEN 500 MG TABLET (FP) ONE (17:29)
[2020-06-16] MEDS ORDERED: ACETAMINOPHEN 500 MG TABLET (FP) PO ONE (17:30)
[2020-06-16 17:38] VITALS: BP 174/74
== END 2020-06-16 17:39 | disposition home or self-care (01) ==
LOC: JERFT 16:45
DX: K06.9 Disorder of gingiva and edentulous alveolar ridge, unspecified (principal)
CPT/HCPCS: 99283-25

== ENCOUNTER 2021-03-26 09:04 | Emergency (ER) | payer MEDICARE, OTHER ==
[2021-03-26 09:28] VITALS: BP 155/79; PULSE 68; TEMP 97; BMI 26.4
[2021-03-26] MEDS ORDERED: LIDOCAINE 5% TOPICAL PATCH TP ONE (10:05)
[2021-03-26] MEDS ORDERED: IBUPROFEN 400 MG TABLET (FP) PO ONE ×2 (10:05→10:25)
[2021-03-26] MEDS ORDERED: METHOCARBAMOL 500 MG TABLET PO ONE (10:05)
[2021-03-26] MEDS ORDERED: METHOCARBAMOL 500 MG TABLET ONE (10:24)
[2021-03-26] MEDS ORDERED: LIDOCAINE 5% TOPICAL PATCH ONE (10:25)
[2021-03-26] MEDS ORDERED: LIDOCAINE PATCH REMOVAL MC SCH (22:00)
== END 2021-03-26 11:57 | disposition home or self-care (01) ==
LOC: JER 09:04
DX: M54.9 Dorsalgia, unspecified (principal)
CPT/HCPCS: 71101-TC-RT-FY; 93005; 93010; 99284-25

== ENCOUNTER 2023-10-16 04:05 | Day surgery (SDC) | payer OTHER ==
[2023-10-15 08:25] VITALS: BMI 25.3
[~2023-10-16 04:05] MED LIST: ACETAMINOPHEN 325 MG TABLET (FP) PO PRN; BUPIVACAINE HCL/PF 0.75% 10 ML VIAL RB ONE; LIDOCAINE HCL/PF 2% SDV 5ML VIAL INF ONE
[2023-10-16] MEDS ORDERED: LIDOCAINE HCL/PF 1% SDV 5ML VIAL ONE (07:46)
[2023-10-16] MEDS ORDERED: BUPIVACAINE HCL/PF 0.75% 10 ML VIAL ONE (07:46)
[2023-10-16] MEDS ORDERED: EPINEPHrine/PF 1 MG/1 ML (1:1,000) AMPULE ONE (07:46)
[2023-10-16] MEDS ORDERED: LIDOCAINE HCL/PF 2% SDV 5ML VIAL ONE ×2 (07:46→09:41)
[2023-10-16] MEDS ORDERED: ACETYLCHOLINE 1:100 INTRA-OCUL 20 MG/2 ML KIT ONE (07:47)
[2023-10-16] MEDS ORDERED: POVIDONE-IODINE 5% OPHTHALMIC PREP 30 ML SOLUTION ONE (07:47)
[2023-10-16 08:18] VITALS: RESP 18
[2023-10-16] MEDS ORDERED: CYCLOPENTOLATE HCL 1% OPHTH SOLN 2 ML BOTTLE ONE (08:31)
[2023-10-16] MEDS ORDERED: OFLOXACIN 0.3% OPHTHALMIC SOLUTION 5 ML BOTTLE ONE (08:31)
[2023-10-16] MEDS ORDERED: TROPICAMIDE 1% OPHTH SOLN 15 ML BOTTLE ONE (08:31)
[2023-10-16] MEDS ORDERED: KETOROLAC TROMETHAMINE 0.5% EYE DROP 1 DROP DROPS ONE (08:31)
[2023-10-16] MEDS ORDERED: PHENYLEPHRINE 2.5% OPTHALMIC DROP 2ML BOTTLE ONE (08:31)
[2023-10-16] MEDS: OFLOXACIN 0.3% OPHTHALMIC SOLUTION 5 ML BOTTLE OP SCH ×3 (08:35→09:00)
[2023-10-16] MEDS: TROPICAMIDE 1% OPHTH SOLN 15 ML BOTTLE OP SCH ×3 (08:35→09:00)
[2023-10-16] MEDS: CYCLOPENTOLATE HCL 1% OPHTH SOLN 2 ML BOTTLE OP SCH ×3 (08:35→09:00)
[2023-10-16] MEDS: PHENYLEPHRINE 2.5% OPHTH SOLN 15 ML BOTTLE OP SCH ×3 (08:35→09:00)
[2023-10-16] MEDS: KETOROLAC TROMETHAMINE 0.5% EYE DROP 1 DROP DROPS OP SCH ×3 (08:35→09:00)
[2023-10-16] MEDS ORDERED: MIDAZOLAM HCL 2 MG/2 ML SINGLE DOSE VIAL ONE (09:18)
[2023-10-16] MEDS ORDERED: PROPOFOL 20 ML ONE (09:41)
[2023-10-16] MEDS ORDERED: BUPIVACAINE HCL/PF 0.75% 10 ML VIAL RB ONE (10:05)
[2023-10-16] MEDS ORDERED: LIDOCAINE HCL/PF 2% SDV 5ML VIAL INF ONE (10:05)
[2023-10-16] MEDS ORDERED: POVIDONE-IODINE 5% OPHTHALMIC PREP 30 ML SOLUTION OD ONE (10:06)
[2023-10-16] MEDS ORDERED: LIDOCAINE HCL 1% PRESERVATIVE FREE - 30ML VIAL IO ONE (10:14)
[2023-10-16] MEDS ORDERED: BSS (NA/CA/MG/K) BALANCED SALT SOLUTION OPHTH SOLN 15 ML BOTTLE IO ONE (10:15)
[2023-10-16] MEDS ORDERED: CHONDROITIN SU A/HYALUR SOD 1 KIT IO ONE (10:15)
[2023-10-16] MEDS ORDERED: EPINEPHrine/PF 1 MG/1 ML (1:1,000) AMPULE IO ONE (10:18)
[2023-10-16 11:13] VITALS: BP 132/58; PULSE 83; TEMP 98.4
[2023-10-16] MEDS ORDERED: CHONDROITIN SU A/HYALUR SOD 1 KIT ONE (11:41)
== END 2023-10-16 11:20 | disposition home or self-care (01) ==
LOC: JASU-SURG 04:05
PROVIDERS: ATTEND Ophthalmology
PROC: 08RJ3JZ Replacement of Right Lens with Synthetic Substitute, Percutaneous Approach (ICD-10-PCS; principal; 2023-10-16 09:00)
DX: H26.9 Unspecified cataract (principal)
CPT/HCPCS: V2632

== ENCOUNTER 2023-10-30 04:20 | Day surgery (SDC) | payer OTHER ==
[2023-10-29 09:10] VITALS: BMI 24.6
[~2023-10-30 04:20] MED LIST changes: -ACETAMINOPHEN 325 MG TABLET (FP) PO PRN; -BUPIVACAINE HCL/PF 0.75% 10 ML VIAL RB ONE; -LIDOCAINE HCL/PF 2% SDV 5ML VIAL INF ONE; +VANCOMYCIN 500 MG VIAL (RESTRICTED TO ID ONLY) IVPB ONE
[2023-10-30] MEDS ORDERED: TROPICAMIDE 1% OPHTH SOLN 15 ML BOTTLE ONE (06:13)
[2023-10-30] MEDS ORDERED: PHENYLEPHRINE 2.5% OPTHALMIC DROP 2ML BOTTLE ONE (06:13)
[2023-10-30] MEDS ORDERED: CYCLOPENTOLATE HCL 1% OPHTH SOLN 2 ML BOTTLE ONE (06:13)
[2023-10-30] MEDS ORDERED: KETOROLAC TROMETHAMINE 0.5% EYE DROP 1 DROP DROPS ONE (06:13)
[2023-10-30] MEDS ORDERED: OFLOXACIN 0.3% OPHTHALMIC SOLUTION 5 ML BOTTLE ONE (06:13)
[2023-10-30 06:23] VITALS: RESP 18
[2023-10-30] MEDS: KETOROLAC TROMETHAMINE 0.5% EYE DROP 1 DROP DROPS OP SCH ×3 (06:30→06:53)
[2023-10-30] MEDS: OFLOXACIN 0.3% OPHTHALMIC SOLUTION 5 ML BOTTLE OP SCH ×3 (06:30→06:53)
[2023-10-30] MEDS: PHENYLEPHRINE 2.5% OPHTH SOLN 15 ML BOTTLE OP SCH ×3 (06:30→06:52)
[2023-10-30] MEDS: CYCLOPENTOLATE HCL 1% OPHTH SOLN 2 ML BOTTLE OP SCH ×3 (06:30→06:53)
[2023-10-30] MEDS: TROPICAMIDE 1% OPHTH SOLN 15 ML BOTTLE OP SCH ×3 (06:30→06:52)
[2023-10-30] MEDS ORDERED: VANCOMYCIN 500 MG VIAL (RESTRICTED TO ID ONLY) ONE (07:19)
[2023-10-30] MEDS ORDERED: POVIDONE-IODINE 5% OPHTHALMIC PREP 30 ML SOLUTION ONE (07:20)
[2023-10-30] MEDS ORDERED: ONDANSETRON 4 MG/2 ML VIAL ONE (07:27)
[2023-10-30] MEDS ORDERED: PROPOFOL 40 ML ONE (07:27)
[2023-10-30] MEDS ORDERED: LIDOCAINE HCL/PF 2% SDV 5ML VIAL ONE ×2 (07:27→07:29)
[2023-10-30] MEDS ORDERED: MIDAZOLAM HCL 2 MG/2 ML SINGLE DOSE VIAL ONE (07:28)
[2023-10-30] MEDS ORDERED: SUCCINYLCHOLINE CHLORIDE 200 MG/10 ML SYRINGE ONE (08:03)
[2023-10-30] MEDS ORDERED: LIDOCAINE HCL/PF 2% SDV 5ML VIAL INF ONE (08:07)
[2023-10-30] MEDS ORDERED: BUPIVACAINE HCL/PF 0.75% 10 ML VIAL NR ONE (08:07)
[2023-10-30] MEDS ORDERED: POVIDONE-IODINE 5% OPHTHALMIC PREP 30 ML SOLUTION OS ONE (08:08)
[2023-10-30] MEDS ORDERED: BSS (NA/CA/MG/K) BALANCED SALT SOLUTION OPHTH SOLN 15 ML BOTTLE OS ONE (08:16)
[2023-10-30] MEDS ORDERED: CHONDROITIN SU A/HYALUR SOD 1 KIT IO ONE (08:17)
[2023-10-30] MEDS ORDERED: LIDOCAINE HCL 1% PRESERVATIVE FREE - 30ML VIAL IO ONE (08:17)
[2023-10-30] MEDS ORDERED: EPINEPHrine/PF 1 MG/1 ML (1:1,000) AMPULE SQ ONE (08:25)
[2023-10-30] MEDS ORDERED: VANCOMYCIN 500 MG VIAL (RESTRICTED TO ID ONLY) IVPB ONE (08:36)
[2023-10-30] MEDS ORDERED: ACETAMINOPHEN 325 MG TABLET (FP) ONE (08:44)
[2023-10-30 08:49] VITALS: PULSE 72
[2023-10-30] MEDS ORDERED: ACETAMINOPHEN 325 MG TABLET (FP) PO PRN (09:05)
[2023-10-30 09:09] VITALS: BP 126/66; TEMP 98
== END 2023-10-30 09:18 | disposition home or self-care (01) ==
LOC: JASU-SURG 04:20
PROVIDERS: ATTEND Ophthalmology
PROC: 08RK3JZ Replacement of Left Lens with Synthetic Substitute, Percutaneous Approach (ICD-10-PCS; principal; 2023-10-30 08:00)
DX: H26.9 Unspecified cataract (principal)
CPT/HCPCS: V2632

== ENCOUNTER 2024-04-12 09:08 | Emergency (ER) | payer OTHER ==
[2024-04-12 09:15] VITALS: BP 104/59; PULSE 75; RESP 18; TEMP 97.7; BMI 24.4
[2024-04-12] MEDS ORDERED: DOXYCYCLINE HYCLATE 100 MG CAPSULE PO ONE (10:00)
[2024-04-12] MEDS ORDERED: ACETAMINOPHEN 500 MG TABLET (FP) ONE (10:00)
[2024-04-12] MEDS: ACETAMINOPHEN 500 MG TABLET (FP) PO ONE (10:02)
[2024-04-12] MEDS: DOXYCYCLINE HYCLATE 100 MG CAPSULE PO ONE (10:03)
== END 2024-04-12 11:17 | disposition home or self-care (01) ==
LOC: JER 09:08 → JERFT 09:08
DX: K08.89 Other specified disorders of teeth and supporting structures (principal); G89.29 Other chronic pain; M54.6 Pain in thoracic spine
CPT/HCPCS: 72070-TC-FY; 99283-25

== ENCOUNTER 2024-05-13 14:35 | Emergency (ER) | payer OTHER ==
[2024-05-13 14:42] VITALS: BP 125/65; PULSE 80; RESP 18; TEMP 98.5; BMI 23.8
== END 2024-05-13 16:05 | disposition home or self-care (01) ==
LOC: JERFT 14:35
DX: R68.84 Jaw pain (principal); K08.89 Other specified disorders of teeth and supporting structures
CPT/HCPCS: 99283-25